=== PATIENT | female | born 1990 | race Two or more races ===

== ENCOUNTER 2017-11-11 18:36 | Observation (INO) | payer MEDICAID, OTHER ==
[2017-11-11] MEDS ORDERED: ALBU0.084 NEB (19:46)
== END 2017-11-11 19:28 | disposition home or self-care (01) | DRG 566 ==
LOC: LDRP 18:36
PROVIDERS: ADMIT Obstetrics & Gynecology; ATTEND Obstetrics & Gynecology
DX: O26.893 Other specified pregnancy related conditions, third trimester (principal); F17.210 Nicotine dependence, cigarettes, uncomplicated; R10.9 Unspecified abdominal pain; O99.513 Diseases of the respiratory system complicating pregnancy, third trimester; J45.909 Unspecified asthma, uncomplicated; O99.333 Smoking (tobacco) complicating pregnancy, third trimester; Z3A.31 31 weeks gestation of pregnancy
CPT/HCPCS: 59025; 81002; G0378